=== PATIENT | female | born 1975 | race Caucasian/White ===

== ENCOUNTER 2018-05-12 21:02 | Emergency (ER) | payer OTHER ==
[~2018-05-12] VITALS: Ht 175.3 cm; Wt 108.9 kg
--- NOTE | ~2018-05-12 | EKG ---
[address] [place] [address] ELECTROCARDIOGRAM REPORT Name: CHINA BACON Room #: [facility]#: [id number] Admission: 05/12/18 Attend Phys: Discharge: 05/12/18 Date of : 79 Report #: [id number] THIS REPORT FOR: //name// [facility] ED Test Date: 2018-05-12 Test Time: 21:02:10 Pat Name: CHINA BACON Department: Room: Gender: F Liaison Engineer: John CAMERON : 1975 Requested By: Lisy Okeefe Order Number: [id number] MD: Abran Veliz Measurements Intervals [place] Rate: 97 P: 36 CT: 122 QRS: 19 QRSD: 86 T: 61 QT: 351 QTc: 446 Interpretive Statements Sinus rhythm No significant abnormality Baseline wander in lead(s) V6 No previous ECG available for comparison Electronically Signed On 05-13-2018 8:57:50 CDT by Abran Veliz [email or web address] <ELECTRONICALLY SIGNED> By: Abran Veliz MD, [facility] 05/13/18 0857 01 01 Abran Veliz MD, FACC /EPI
[2018-05-12] MEDS ORDERED: METFORMIN HCL500 MG PO (21:21)
[2018-05-12] MEDS ORDERED: JANUVIA 50 MG T50 M1 PO (21:21)
[2018-05-12] MEDS ORDERED: [UNRECOGNIZED DRUG - OTHER] SUBQ (21:22)
[2018-05-12] MEDS ORDERED: MOBIC15 MG PO (21:22)
[2018-05-12] MEDS ORDERED: KLOR-CON 10 ER10 MEQ PO (21:23)
[2018-05-12] MEDS ORDERED: TOUJEO MAX300 UNIT/1 SUBQ (21:34)
[2018-05-12] MEDS ORDERED: PREDNISONE 10 M10 MG PO (22:16)
[2018-05-12] MEDS ORDERED: ACYCLOVIR 400400 MG PO (22:16)
[2018-05-12 22:34] VITALS: BP 132/69
== END 2018-05-12 22:30 | disposition home or self-care (01) ==
LOC: ER 21:02
DX: G51.0 Bell's palsy (principal); E11.9 Type 2 diabetes mellitus without complications

== ENCOUNTER 2019-05-11 15:18 | Inpatient (IN) | payer OTHER ==
[~2019-05-11] VITALS: Ht 175.3 cm; Wt 109.3 kg
[~2019-05-11 15:18] MED LIST: ACYCLOVIR 400400 MG PO; JANUVIA 50 MG T50 M1 PO; KLOR-CON 10 ER10 MEQ PO; METFORMIN HCL500 MG PO; MOBIC15 MG PO; PREDNISONE 10 M10 MG PO; TOUJEO MAX300 UNIT/1 SUBQ; [UNRECOGNIZED DRUG - OTHER] SUBQ
[2019-05-11 15:19] VITALS: BP 119/91
[2019-05-11 15:52] LABS: URINE BLOOD 2+ (Negative); URINE CLARITY CLEAR; URINE COLOR YELLOW; URINE GLUCOSE-RANDOM* 3+ (Negative); URINE KETONES 3+ (Negative); URINE LEUKOCYTES-REFLEX NEGATIVE (Negative); URINE NITRITE-REFLEX NEGATIVE (Negative); URINE PROTEIN (DIPSTICK) NEGATIVE (Negative); URINE UROBILINOGEN 0.2 E.U./dl (0.2-1.0)
[2019-05-11 15:53] LABS: ICTOTEST (BILI CONFIRMATORY) Negative (Negative); URINE BILIRUBIN NEGATIVE (Negative)
[2019-05-11 16:03] LABS: CASTS None Seen /LPF (None Seen); SQUAMOUS 4-10 Moderate /LPF (0-3)
[2019-05-11 16:04] LABS: BACTERIA-REFLEX >30 Many /HPF (None Seen); CRYSTALS None Seen /LPF (None Seen); URINE RBC 3-10 Few /HPF (0-2); YEAST-REFLEX Present (None Seen)
[2019-05-11 18:47] LABS: RBC 4.62 mil/uL (4.20-5.00); WBC 7.6 thou/uL (4.0-11.0)
[2019-05-11 18:48] LABS: HEMATOCRIT 39.2 % (37.0-47.0); HEMOGLOBIN 14.2 gm/dL (12.0-15.0); MCH 30.8 pg (26.0-34.0); MCHC 36.3 g/dL (28.0-37.0); MCV 84.8 fL (80.0-100.0); RDW 13.6 % (10.5-14.5)
[2019-05-11] MEDS ORDERED: GABAPENTIN 100100 MG PO (19:01)
[2019-05-11] MEDS ORDERED: TRAZODONE HCL50 MG PO (19:02)
[2019-05-11 19:14] LABS: PLATELET COUNT 345 thou/uL (150-400)
[2019-05-11 19:15] LABS: ANISOCYTOSIS SLIGHT
[2019-05-11 20:48] LABS: POC CA IONIZED 4.9 mg/dL (4.5-5.3); POC CREATININE 0.2 mg/dL (0.6-1.3)
[2019-05-11 21:07] LABS: POTASSIUM 4.1 mmol/L (3.5-5.1)
[2019-05-11 21:30] LABS: ALBUMIN 3.2 g/dL (3.4-5.0); CALCIUM 7.1 mg/dL (8.5-10.1); CREATININE 0.4 mg/dL (0.6-1.0); TOTAL BILIRUBIN 0.4 mg/dL (<0.1-1.0); TOTAL PROTEIN 5.7 g/dL (6.4-8.2)
[2019-05-12 00:13] VITALS: BP 112/59
[2019-05-12 00:15] VITALS: BP 133/67
--- NOTE | 2019-05-12 01:12 | NUR ---
Pt. arrived to the unit from the emergency room accompanied by staff. Admission assessment and history is completed. She is is up ad parrish in her room.
--- NOTE | 2019-05-12 06:00 | NUR ---
Pt. rested quietly at short intervals during the night when checked on during frequent rounds. She was given pain meds for c/o abdominal pain (see emar) with some relief noted. Insulin gtt started per orders.
[2019-05-12 08:45] VITALS: BP 115/62
--- NOTE | 2019-05-12 13:47 | NUR ---
PT ADMITTED RELATED TO PANCREATITIS. CM REVIEWED CHART AND SPOKE WITH CARE TEAM. CM MET WITH PT AT BEDSIDE THIS DAY PT IS A&O X4. CM ROLE INTRODUCED. PT INDICATED SHE LIVES IN HOUSE WITH HER SPOUSE AND DTR. PT INDICATED THERE ARE 2 STEPS TO ENTER AND A FULL FLIGHT OF STEPS INSIDE. 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 PT INDICATED SHE PLANS TO RETURN HOME [facility] ST[facility]. CM TO FOLLOW INDICATED WITH DC PLANNING.
[2019-05-12 14:09] VITALS: BP 114/66
[2019-05-12 15:46] LABS: LIPASE 914 U/L (73-393); TRIGLYCERIDE 1516 mg/dL (<150)
[2019-05-12 16:07] LABS: GLYCOHEMOGLOBIN (HGB A1C) 12.4 % (4.8-5.6)
--- NOTE | 2019-05-12 20:17 | NUR ---
Assumed pt care this am, pt was on an insulin pump protocol, this was DC by Dr. Flores when bs levels were down to the 186. Orders given for low dose sliding scale, clear liquids started moving to low fat and sugarfree diets. Pt is able to abulate the halls and do self care (bath) independently. POC followed no signd of distres or vebalizations noted. Endorsed to the night nurse.
[2019-05-13 05:35] VITALS: BP 109/67
[2019-05-13 07:28] VITALS: BP 109/71
--- NOTE | 2019-05-13 07:36 | NUR ---
PROGRESS PT A/O X4 UP AD MIRNA, LUNGS CLEAR, ABDOMEN SOFT AND NON TENDER WITH ACTIVE BS. VOIDING QS. VSS, SKIN CLEAN, WARM, AND DRY WITH NO AREAS OF BREAKDOWN NOTED. TOLERATING CLEAR LIQUIDS TO ADVANCE DIET LATER TODAY. DENIES NEED FOR PAIN MEDICATION. IVF'S INFUSING ORDERED. CONTINUE TO MONITOR.
[2019-05-13 10:54] VITALS: BP 109/71
--- NOTE | 2019-05-13 11:05 | NUR ---
pt stable this morning. pt discharged home. pt left unit vai wheelchair to private vehicle.
== END 2019-05-13 11:48 | disposition home or self-care (01) | DRG 439 ==
LOC: ER 15:18 → EROBS 21:48 → 4W 21:48
PROVIDERS: Nurse Practitioner Acute Care; Nurse Practitioner Family; ADMIT Internal Medicine
DX: K85.90 Acute pancreatitis without necrosis or infection, unspecified (principal); N39.0 Urinary tract infection, site not specified; G51.0 Bell's palsy; E66.9 Obesity, unspecified; E78.1 Pure hyperglyceridemia; E11.65 Type 2 diabetes mellitus with hyperglycemia; Z68.35 Body mass index [BMI] 35.0-35.9, adult; Z90.89 Acquired absence of other organs; Z79.899 Other long term (current) drug therapy; Z87.891 Personal history of nicotine dependence; Z80.0 Family history of malignant neoplasm of digestive organs
CPT/HCPCS: 10040